=== PATIENT | female | born 1980 | race Caucasian/White ===

== ENCOUNTER 2019-11-13 15:29 | Emergency (ER) | payer OTHER, SELFPAY ==
[2019-11-13 15:36] VITALS: BP 120/72; PULSE 84; RESP 18; TEMP 36.8; O2SAT 100
--- NOTE | 2019-11-13 15:50 | ED.URI ---
HPI - URI/Sore Throat General Chief Complaint: Upper Respiratory Infection Stated Complaint: sinus infection and cough Time Seen by Provider: 11/13/19 15:45 Source: patient and RN notes reviewed Mode of arrival: ambulatory Limitations: no limitations History of Present Illness HPI Narrative: Patient presents today with a 7-day history of sinus pressure and congestion, frontal headache, intermittent dry cough.Reports symptoms had improved 2 days ago, but worsened significantly today. She has been using Christy-Schofield cold and flu and Benadryl. Denies fever or shortness of breath. MD elicited complaint: cough, nasal congestion and sinus pain Related Data Home Medications Medication Instructions Recorded Confirmed No Home Medications 11/13/19 11/13/19 Allergies Allergy/AdvReac Type Severity Reaction Status Date / Time No Known Allergies Allergy Unverified 06/22/18 11:09 Review of Systems Review of Systems: Narrative: CONSTITUTIONAL: Denies body aches, fever, chills, or sweats. EYES: Denies visual changes, redness, or discharge. ENT: Denies rhinorrhea, sore throat, or otalgia.+Nasal congestion, sinus pressure CARDIOVASCULAR: Denies chest pain, palpitations, or edema. RESPIRATORY: Denies dyspnea.+Intermittent dry cough GASTROINTESTINAL: Denies abdominal pain, nausea, vomiting, or diarrhea. GENITOURINARY: Denies dysuria or hematuria. SKIN: Denies rash, itching, or wounds. MUSCULOSKELETAL: Denies back pain, joint pain, or myalgia. NEUROLOGIC: Denies numbness, tingling, or weakness.+Frontal headache PSYCH: Denies depression or anxiety. PMFSH Comments At time of signature, I have reviewed and agree with nursing past medical, surgical, social and family history unless otherwise noted. Please see nursing chart for further information. There is no relevant family history pertinent to the presenting complaint Exam Narrative: Exam Narrative: GENERAL: Mildly ill-appearing, well-nourished, and in no acute distress. HEAD: Normocephalic, atraumatic. EYES: EOMI. No redness or drainage. Conjunctivae normal. ENT: Mucous membranes pink and moist. Nares Congested with rhinorrhea. Bilateral frontal sinus tenderness. TMs normal bilaterally. Throat normal. Uvula midline. NECK: Normal AROM. Supple. No lymphadenopathy. CHEST: No respiratory distress. Clear to auscultation. HEART: Regular rate and rhythm. No murmur appreciated. Normal peripheral pulses. EXTREMITIES: Normal range of motion. No edema. SKIN: Warm, dry, no rash. NEURO: No focal deficits. Alert and oriented x3. Gait steady. PSYCH: Normal affect. No signs of depression or anxiety. Course Vital Signs Vital signs: Vital Signs Temperature 98.2 F 11/13/19 15:36 Pulse Rate 84 11/13/19 15:36 Respiratory Rate 18 11/13/19 15:36 Blood Pressure 120/72 11/13/19 15:36 Pulse Oximetry 100 11/13/19 15:36 Temperature 98.2 F 11/13/19 15:36 Pulse Rate 84 11/13/19 15:36 Respiratory Rate 18 11/13/19 15:36 Blood Pressure 120/72 11/13/19 15:36 Pulse Oximetry 100 11/13/19 15:36 Reviewed MDM - URI/Sore Throat MDM Narrative Medical decision making narrative: Due to patient's history of present illness and symptoms of double worsening, I feel it indicated to treat her with antibiotics at this time for bacterial sinusitis. Differential Diagnosis Differential diagnosis: Likely upper respiratory infection, sinusitis, viral infection and bronchitis Critical Care Time Critical Care Time Critical Care Time: No Discharge Plan Discharge Clinical Impression: Sinusitis Qualifiers: Sinusitis location: frontal Chronicity: acute Recurrence: not specified as recurrent Qualified Code(s): J01.10 - Acute frontal sinusitis, unspecified Patient Disposition: Home, Self-Care Condition: Stable Instructions: Antibiotic Form, Sinusitis (ED) Additional Instructions: Please take the Augmentin as prescribed until gone. You may also consider taking a deconge
== END 2019-11-13 16:00 | disposition home or self-care (01) ==
PROVIDERS: Emergency Provider Nurse Practitioner; PCP Internal Medicine
DX: J01.10 Acute frontal sinusitis, unspecified (principal)
CPT/HCPCS: 99211; G0463

== ENCOUNTER 2021-03-09 12:01 | Emergency (ER) | payer OTHER, SELFPAY ==
[2021-03-09 12:08] VITALS: BP 122/84; PULSE 69; RESP 20; TEMP 36.9; O2SAT 99
--- NOTE | 2021-03-09 12:41 | ED.URI ---
HPI - URI/Sore Throat General Chief Complaint: Upper Respiratory Infection Stated Complaint: Coughing,Congestion and chest pain, Time Seen by Provider: 03/09/21 12:41 Source: patient Mode of arrival: ambulatory Limitations: no limitations History of Present Illness HPI Narrative: Esther Resendez is a 40 yo female with no PMH who came to [facility] with cough congestion and ear pain after traveling back to [place] 5 days ago states she has a cough that feels like acid in her chest, she has tried most yebt-ieq-[id number] medications are available to control her sinus congestion or cough 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 EYES: Denies visual changes, redness, discharge. ENT: Denies rhinorrhea, has congestion, has sore throat, otalgia. CARDIOVASCULAR: Denies chest pain, palpitations, edema. RESPIRATORY: Denies dyspnea, wheezing, has cough GASTROINTESTINAL: Denies abdominal pain, nausea, vomiting, diarrhea. GENITOURINARY: Denies dysuria, hematuria, abnormal discharge SKIN: Denies rash or itching. NEUROLOGIC: Denies numbness, or focal weakness. PSYCHIATRIC: Denies anxiety or depression. [facility] Past Medical History Medical History No acute medical problems Social History Social History (Updated 03/09/21 @ 12:55 by Jolly Lara CNP) Smoking status: Never smoker Alcohol intake: current Comments At time of signature, I agree with nursing past medical, surgical, social and family history. There is no relevant family history pertinent to the presenting complaint. Exam Narrative: Exam Narrative: GENERAL: This is a well-nourished, well-developed patient, in mild distress. HEAD: normocephalic, atraumatic. EYES: Sclera clear/white. Vision is grossly intact. EARS: External ears normal, auditory canals clearon L though states it is painful, right has erythema and without drainage, TMs bulging on right. Hearing grossly intact. NOSE: External nose normal without nasal discharge, nares without redness, no rhinorrhea. THROAT: Mucous membranes moist, posterior pharynx erythema NECK: Neck supple, non-tender CARDIOVASCULAR: Regular rate and rhythm without murmurs, gallops, or rubs. RESPIRATORY: Clear to auscultation. Breath sounds equal bilaterally. No wheezes, rales, or rhonchi. GASTROINTESTINAL: Abdomen soft, non-tender, SKIN: warm, intact with no suspicious lesions or rash, good texture and turgor. NEURO: awake, alert, and oriented to person, place and time. There were no obvious focal neurologic abnormalities. Steady gait EXTREMITIES: Normal range of motion. BACK: Nontender without deformity Course Course Emergency Course: Patient comes to [facility] after trying to self medicate increased over the last 5 days states- the cough started on Thursday home and started feeling worse through the week. She is fully vaccinated Covid test done- negative started on ear drops, Prednisone, cough syrup, albuterol Vital Signs Vital signs: Vital Signs Temperature 98.4 F 03/09/21 12:08 Pulse Rate 69 03/09/21 12:08 Respiratory Rate 20 03/09/21 12:08 Blood Pressure 122/84 03/09/21 12:08 Pulse Oximetry 99 03/09/21 12:08 Temperature 98.4 F 03/09/21 12:08 Pulse Rate 69 03/09/21 12:08 Respiratory Rate 20 03/09/21 12:08 Blood Pressure 122/84 03/09/21 12:08 Pulse Oximetry 99 03/09/21 12:08 MDM - URI/Sore Throat Differential Diagnosis Differential diagnosis: Likely upper respiratory infection, croup, sinusitis, viral infection, pharyngitis and other Lab Data Labs: Lab Results 03/09/21 Range/Units 12:47 POC SARS CoV-2 Ag Negative (Negative) Discharge Plan Discharge Clinical Impression: Upper
== END 2021-03-09 13:08 | disposition home or self-care (01) ==
PROVIDERS: Emergency Provider Nurse Practitioner; PCP Internal Medicine
DX: J06.9 Acute upper respiratory infection, unspecified (principal); Z20.822 Contact with and (suspected) exposure to COVID-19
CPT/HCPCS: 87426; 99213; C9803; G0463

== ENCOUNTER 2021-11-17 10:34 | Emergency (ER) | payer OTHER, SELFPAY ==
[2021-11-17 10:40] VITALS: BP 120/78; PULSE 81; RESP 20; TEMP 37.3; O2SAT 100
--- NOTE | 2021-11-17 10:57 | ED.URI ---
HPI - URI/Sore Throat General Chief Complaint: Upper Respiratory Infection Stated Complaint: Sinus Pain/Cough Time Seen by Provider: 11/17/21 10:57 Source: patient and RN notes reviewed Mode of arrival: ambulatory Limitations: no limitations History of Present Illness HPI Narrative: 41-year-old female presented for complaint of sinus pressure and congestion for 2 weeks. She endorses the last 3 days she developed a moist nonproductive cough. States the cough causes her to become shortness of breath and gag. Denies associated chest pain, wheezing, nausea, vomiting, diarrhea, fever or chills. She is taken [id number] medications with no relief in symptoms. MD elicited complaint: cough Related Data Allergies Allergy/AdvReac Type Severity Reaction Status Date / Time No Known Allergies Allergy Verified 11/17/21 10:58 Review of Systems Review of Systems: CONSTITUTIONAL: Denies malaise, chills, sweats, fever EYES: Denies visual changes, redness, or discharge ENT: Reports rhinorrhea, congestion, sinus pain, otalgia, sore throat CARDIOVASCULAR: Denies chest pain, palpitations, edema RESPIRATORY: Reports cough, post nasal drainage. Denies dyspnea GASTROINTESTINAL: Denies abdominal pain, nausea, vomiting, diarrhea SKIN: Denies rash or itching MUSCULOSKELETAL: Denies myalgia NEUROLOGIC: Denies headache PMFSH Past Medical History Medical History No acute medical problems Social History Social History Smoking status: Never smoker Alcohol intake: current Exam Narrative: GENERAL: Ill-appearing, nontoxic HEAD: Normocephalic EYES: conjunctivae clear ENT: Mucous membranes moist. TM pearly james with dull light reflex bilaterally; no tragal tenderness. Oropharynx erythematous without lesions or exudate, no drooling, no hoarseness, no trismus, uvula midline. NECK: Supple. No lymphadenopathy CHEST: Clear to auscultation, breath sounds equal. No wheezing, rhonchi, rales, or stridor. HEART: Regular rate and rhythm. No murmur heard. SKIN: Warm, dry, no rash. NEURO: Alert and oriented x3. PSYCH: Normal mood and affect Course Course Emergency Course: Patient is aware of diagnosis, understands and agrees to treatment plan. Anticipatory guidance given. Patient agrees to follow-up as directed and is aware of reasons to seek care at the emergency department. Portions of this record may have been created with voice recognition software Level of Care: Express Care Visit Vital Signs Vital signs: Vital Signs Temperature 99.2 F 11/17/21 10:40 Pulse Rate 81 11/17/21 10:40 Respiratory Rate 20 11/17/21 10:40 Blood Pressure 120/78 11/17/21 10:40 Pulse Oximetry 100 11/17/21 10:40 Temperature 99.2 F 11/17/21 10:40 Pulse Rate 81 11/17/21 10:40 Respiratory Rate 20 11/17/21 10:40 Blood Pressure 120/78 11/17/21 10:40 Pulse Oximetry 100 11/17/21 10:40 reviewed MDM - URI/Sore Throat MDM Narrative Medical decision making narrative: Symptoms consistent with URI she is advised to take the antibiotic as directed and continue supportive treatment. No indication for imaging at this time. She will follow up with her PCP. Differential Diagnosis Differential diagnosis: Likely upper respiratory infection, sinusitis and viral infection Discharge Plan Discharge Clinical Impression: Upper respiratory infection Qualifiers: URI type: unspecified URI Qualified Code(s): J06.9 - Acute upper respiratory infection, unspecified Patient Disposition: Home, Self-Care Condition: Stable Instructions: Antibiotic Form, Sinusitis (ED) Additional Instructions: Recommend Flonase spray and Zyrtec (or Claritin/Corrine) over the counter Cough syrup may cause drowsiness; avoid driving or take it at night time. Tylenol 1000mg every 8 hours as needed for pain Symptomatic treatment includes: rest, fluids, and in
== END 2021-11-17 11:15 | disposition home or self-care (01) ==
PROVIDERS: Emergency Provider Nurse Practitioner Family; PCP Internal Medicine
DX: J06.9 Acute upper respiratory infection, unspecified (principal)
CPT/HCPCS: 99213; G0463

== ENCOUNTER 2023-04-13 12:19 | Emergency (ER) | payer OTHER, SELFPAY ==
[2023-04-13 12:33] VITALS: BP 127/87; PULSE 87; RESP 20; TEMP 36.3; O2SAT 100
--- NOTE | 2023-04-13 12:49 | ED.URI ---
HPI - URI/Sore Throat General Chief Complaint: Upper Respiratory Infection Stated Complaint: poss sinus infection Time Seen by Provider: 04/13/23 12:55 Source: patient and RN notes reviewed Mode of arrival: ambulatory Limitations: no limitations History of Present Illness HPI Narrative: 43-year-old female presents with concern for 2 week history of sinus congestion, sinus pain, sinus drainage, reports cough started yesterday. She reports she has been taking [id number] medications without relief MD elicited complaint: nasal congestion and sinus pain Related Data Allergies Allergy/AdvReac Type Severity Reaction Status Date / Time No Known Allergies Allergy Verified 04/13/23 12:40 Review of Systems Review of Systems: CONSTITUTIONAL: Denies malaise, chills, sweats, or fever. EYES: Denies visual changes, redness, or discharge. ENT: Reports rhinorrhea, congestion, sinus pain, otalgia CARDIOVASCULAR: Denies chest pain, palpitations, or edema. RESPIRATORY: Reports cough. Denies dyspnea. GASTROINTESTINAL: Denies abdominal pain, nausea, vomiting, diarrhea SKIN: Denies rash or itching. MUSCULOSKELETAL: Denies myalgia. NEUROLOGIC: Reports headache. All systems reviewed & are unremarkable except as noted in HPI and below PMFSH Past Medical History Medical History No acute medical problems Social History Social History Smoking status: Never smoker Alcohol intake: current Comments At time of signature, agree with nursing past medical, surgical, social and family history. There is no relevant family history pertinent to the presenting complaint Exam Narrative: GENERAL: Well-appearing, well-nourished, and in no acute distress. HEAD: Normocephalic EYES: PERRLA, conjunctivae clear ENT: Nares clear, turbinates edematous and erythematous, sinus tenderness. Mucous membranes moist. TM pearly james with dull light reflex bilaterally; no tragal tenderness. Oropharynx not erythematous without lesions. Tonsils not enlarged and without exudate, no drooling, no hoarseness, no trismus, uvula midline. NECK: Supple. No lymphadenopathy CHEST: Clear to auscultation, breath sounds equal. No wheezing, rhonchi, rales, or stridor. No respiratory distress, speaks in full sentences. HEART: Regular rate and rhythm. No murmur heard. SKIN: Warm, dry, no rash. NEURO: Alert and oriented x3. PSYCH: Normal mood and affect Course Course Emergency Course: Patient is aware of diagnosis, understands and agrees to treatment plan. Anticipatory guidance given. Patient agrees to follow-up as directed and is aware of reasons to seek care at the emergency department. Portions of this record may have been created with voice recognition software Level of Care: Express Care Visit Vital Signs Vital signs: Vital Signs Temperature 97.4 F L 04/13/23 12:33 Pulse Rate 87 04/13/23 12:33 Respiratory Rate 20 04/13/23 12:33 Blood Pressure 127/87 04/13/23 12:33 Pulse Oximetry 100 04/13/23 12:33 Oxygen Delivery Room Air 04/13/23 12:33 Temperature 97.4 F L 04/13/23 12:33 Pulse Rate 87 04/13/23 12:33 Respiratory Rate 20 04/13/23 12:33 Blood Pressure 127/87 04/13/23 12:33 Pulse Oximetry 100 04/13/23 12:33 Oxygen Delivery Room Air 04/13/23 12:33 Reviewed. MDM - URI/Sore Throat MDM Narrative Medical decision making narrative: Differential diagnosis considered: Gusman virus, strep pharyngitis, allergic rhinitis, upper respiratory tract infection, sinusitis, rhinosinusitis, nasopharyngitis. viral pharyngitis, otitis media, otitis externa, pneumonia, bronchitis, viral cough syndrome, viral syndrome, and influenza. Exam findings show no acute concerns or changes; patient is non-toxic appearing and is in no distress. Patient is appropriate for outpatient treatment and follow-up. Lab Data Attestation: I review
== END 2023-04-13 13:15 | disposition home or self-care (01) ==
PROVIDERS: Emergency Provider Nurse Practitioner; PCP Internal Medicine
DX: J01.90 Acute sinusitis, unspecified (principal)
CPT/HCPCS: 99213; G0463

== ENCOUNTER 2024-11-08 13:05 | Emergency (ER) | payer OTHER, SELFPAY ==
[2024-11-08 13:14] VITALS: BP 123/89; PULSE 85; RESP 16; TEMP 36.8; O2SAT 99
--- NOTE | 2024-11-08 13:19 | ED.GENADULT ---
HPI - General Adult General Chief complaint: Extremity Problem,Nontraumatic Stated complaint: pain in right arm Source: patient Mode of arrival: ambulatory Limitations: no limitations History of Present Illness HPI narrative: 44 y/o female presented for c/o acute on chronic right shoulder pain. Says pain worsened today when she returned to work today after being off for 3 months following a work related shoulder injury. Today she says she moved her arm a certain way that caused the shoulder to freeze and lock up, and had sharp pains up and down the arm, and to the shoulder blade. Now reports the pain is 'off the chart.' Continues to have decreased ROM to the shoulder since injury. Says she had been experiencing more of a constant cramping pain to the right upper arm since the injury. Reports she was seen by her company's work comp physician who advised her to return to work today with no restrictions, with a dx of 'mild frozen shoulder,' and says she needs more PT and injections. Pt also says she was seen by a different physician who told her she has multiple labrum tears and the shoulder could pop out, and gave a lifting restriction of 5 lbs. Pt took ibuprofen before work. Denies numbness, tingling or weakness of the arm or hand. Pt is scheduled with pcp this week in 3 days. Related Data Allergies Allergy/AdvReac Type Severity Reaction Status Date / Time No Known Allergies Allergy Verified 11/08/24 13:19 Review of Systems Review of Systems: CONSTITUTIONAL: Denies body aches, fever, chills CARDIOVASCULAR: Denies chest pain, palpitations, or edema. RESPIRATORY: Denies cough or dyspnea. GASTROINTESTINAL: Denies abdominal pain, nausea, vomiting, or diarrhea. SKIN: Denies rash, itching, or wounds. MUSCULOSKELETAL: per HPI NEUROLOGIC: Denies numbness, tingling, or weakness. All systems reviewed & are unremarkable except as noted in HPI and below PMFSH Past Medical History Medical History No acute medical problems Social History Social History Smoking status: Never smoker Alcohol intake: current Comments At time of signature, I have reviewed and agree with nursing past medical, surgical, social and family history unless otherwise noted. Please see nursing chart for further information. There is no relevant family history pertinent to the presenting complaint Exam Narrative: GENERAL: Well-appearing NECK: full ROM CHEST: Speaks in full sentences. No respiratory distress. HEART: Regular rate and rhythm. Normal and equal peripheral pulses. EXTREMITIES: RUE has normal strength and sensation. Limited range of motion at shoulder due to endorses pain with movement <90 degrees anterior and lateral, cannot tolerate full posterior movement. Tender with palpation over the proximal humerus and medial right scapula. No ecchymosis, No open wounds, skin tenting, or obvious deformity; alignment normal, pulse palpable and equal bilaterally, skin warm, dry, pink. Capillary refill less than 3 seconds. SKIN: Warm, dry NEURO: Alert and oriented x3. PSYCH: Normal mood and affect Course Course Emergency Course: Patient is aware of diagnosis, understands and agrees to treatment plan. Anticipatory guidance given. Patient agrees to follow-up as directed and is aware of reasons to seek care at the emergency department. Portions of this record may have been created with voice recognition software Level of Care: Express Care Visit Vital Signs Vital signs: Vital Signs Temperature 98.2 F 11/08/24 13:14 Pulse Rate 85 11/08/24 13:14 Respiratory Rate 16 11/08/24 13:14 Blood Pressure 123/89 11/08/24 13:14 Pulse Oximetry 99 11/08/24 13:14 Oxygen Delivery Room Air 11/08/24 13:14 Temperature 98.2 F 11/08/24 13:14 Pulse Rate 85 11/08/24 13:14 Respiratory Rate 16 11/08/24 13:14 Blood Pressure 123/89 11/08/24 13:14 Pulse Oximetry 99 11/08/24 13:14 Oxygen Delivery Room Air 11/08/24 13:14 Reviewed Medical Decision Making [facility] Narrative Medical decision making narrative: Discussed physical exam findings, pt declines xray at this time stating she has had MRI. She is scheduled with her PCP in 3 days, and would like work note to be off until she can follow up with her established physicians. Rx steroid and cyclobenzaprine. Advised supportive measures and signs/symptoms to go to the ER. Pt is appropriate for outpt treatment and f/u. Differential Diagnosis Differential Diagnosis: Shoulder dislocation, clavicle fracture, humerus fracture, scapular fracture, acromioclavicular joint injury, rotator cuff tear, bicep tendon rupture, tricep tendon rupture, cervical radiculopathy Vital Signs Vital Signs: Vital Signs Temperature 98.2 F 11/08/24 13:14 Pulse Rate 85 11/08/24 13:14 Respiratory Rate 16 11/08/24 13:14 Blood Pressure 123/89 11/08/24 13:14 Pulse Oximetry 99 11/08/24 13:14 Oxygen Delivery Room Air 11/08/24 13:14 Temperature 98.2 F 11/08/24 13:14 Pulse Rate 85 11/08/24 13:14 Respiratory Rate 16 11/08/24 13:14 Blood Pressure 123/89 11/08/24 13:14 Pulse Oximetry 99 11/08/24 13:14 Oxygen Delivery Room Air 11/08/24 13:14 Discharge Plan Discharge Clinical Impression: Pain in right shoulder Patient Disposition: Home, Self-Care Condition: Stable Instructions: Antibiotic Form, Shoulder Pain (ED) Additional Instructions: Rest. Avoid pushing, pulling, lifting, or anything that worsens the symptoms Tylenol 1000mg every 8 hours as needed. take the steroid as directed, limit NSAIDs (Advil, Aleve, ibuprofen etc ) while taking steroid. Cyclobenzaprine (Flexeril) is a muscle relaxer. Take it as directed. It can cause drowsiness so do not drive or operate machinery until you know how it makes you feel. Alternate ice/heat to the site. Lidocaine or salon pas pain patch or use pain cream like icy/hot or biofreeze. Follow up with your primary care provider as scheduled this week. Follow up with your specialist. Go to the ER for worsening symptoms or concerns Patient Language: [place] Prescriptions: New prednisone 50 mg tablet 50 mg PO DAILY Qty: 5 0RF cyclobenzaprine 5 mg tablet 5 mg PO TID PRN (Reason: muscle spasm) Qty: 10 0RF Rx Instructions: Take 1-2 tablets as needed 3 times a day Follow-up/Referrals: Erick Petersen MD [Physician] - PHYSICIAN NOT ON STAFF,NONSTAFF [Primary Care Provider] - Stand Alone Forms: Work/School Release IP Time of Disposition: 13:51
--- OUTSIDE RECORDS SUMMARY | 2024-11-08 14:28 | XMS_ITS | Clinical Summary ---
Author Organization [facility] Address [address] [place] [address] Care Team Providers Care Furnace Feeder Name Role Phone Sagar Redmond MD Primary Care Provider + Allergies No known active allergies Medications cephalexin (KEFLEX) 500 mg capsule Take 1 capsule (500 mg total) by mouth 4 (four) times a day for 7 days 28 capsule 10/17/2024 10/25/19 25 Active Problems Problem Noted Date Diagnosed Date Skin abnormality 01/26/2024 History of surgical procedure 01/07/2014 Overview (11/26/2016): Status following surgery for weight loss Encounters Date Type Department Care Team Description 10/17/2024 3:00 PM CLIENT CONSULTANT Office Visit [facility] [address] [facility] [address] [place] [id number] Pk Lopez MD Well woman exam (Primary Dx); Encounter for screening mammogram for malignant neoplasm of breast; Sebaceous cyst 08/19/2024 8:03 AM CLIENT CONSULTANT - 08/19/2024 11:59 PM CLIENT CONSULTANT Hospital Encounter [facility] [address] [place] [address] Chronic right shoulder pain Discharge Disposition: Discharge to home or self care from Last 3 Months Surgical History Surgery Date Site/Laterality Comments OTHER SURGICAL HISTORY 08/24/2001 - 08/23/2002 : 10 hr labor OTHER SURGICAL HISTORY 08/24/2006 - 08/23/2007 : 0 hr labor ABLATION 08/24/2008 - 08/23/2009 Ablation OTHER SURGICAL HISTORY 08/24/2011 - 08/23/2012 Gastric Sleeve surgery for wt. loss OTHER SURGICAL HISTORY 08/24/2013 - 08/23/2014 Pelvic pain and menorrhagia, dyspareunia.: JAIME, bilat. salpingectomy HYSTERECTOMY 09/07/2013 LAVH TUBAL LIGATION 09/07/2013 BTL MENISCUS SURGERY 05/24/2020 - 06/23/2020 Right Medical History Medical History Date Comments Hx Other Medical 2001 ; Outc ome: 36 week 4 lb(s) 7 oz Male Hx Other Medical 2006 ; Outc ome: 39 week 8 lb(s) 7 oz Female Hx Other Medical Pelvic pain and menorrhagia, dyspareunia. Family History Medical History Relation Name Comments Cancer Mother Other Other 1 Family history of high cholesterol; Hypertension Other 2 Family history of Hypertension; Relation Name Status Comments Father Mother Other 1 Other 2 Social History Tobacco Use Types Packs/Day Years Used Date Smoking Tobacco: Never Smokeless Tobacco: Never Tobacco Cessation:Counseling Given: Not Answered Alcohol Use Standard Drinks/Week Comments No 0 (1 standard drink = 0.6 oz pur e alcohol) PHQ-2 Answer Date Recorded PHQ-2 Total Score (If total score is 3 or more points, staff should administer the PHQ-9) 0 08/04/2023 Comments No Sex and Gender Information Value Date Recorded Sex Assigned at Not on file Legal Sex Female 5:33 AM CLIENT CONSULTANT Gender Identity Not on file Sexual Orientation Not on file Obstetrics History Para Term AB IAB SAB Ectopic Multiple Livin g Live Births 4 3 2 1 1 2 2 Date Outcome GA Total Labor Labor/2nd/3rd Weight Sex Type Anes PTL Kayleigh A1 A5 Name Clin AB Term 2001 36w 0d 1.814 kg (4 lb) M CS-LT ranv Epidur al,Spi nal N Livin g Matthew Complications:Pre eclampsia, Nuchal cord affecting delivery 2006 Term 38w 0d 3.629 kg (8 lb) F CS-LT ranv Spinal N Livin g Kitty Complications:None Last Filed Vital Signs Vital Sign Reading Time Taken Comments Blood Pressure 124/82 10/17/2024 3:04 PM CLIENT CONSULTANT Pulse 67 01/06/2024 9:56 AM CDT Temperature 36.4 C (97.5 F) 01/06/2024 9:56 AM CDT Respiratory Rate 16 06/22/2018 10:10 PM CDT Oxygen Saturation 100% 01/06/2024 9:56 AM CDT Inhaled Oxygen Concentration - - Weight 74.4 kg (164 lb) 10/17/2024 3:04 PM CLIENT CONSULTANT Height 162.6 cm (5' 4 ) 10/17/2024 3:04 PM CLIENT CONSULTANT Body Mass Index 28.15 10/17/2024 3:04 PM CLIENT CONSULTANT Plan of Treatment Health Maintenance Due Date Last Done Comments Hepatitis C Screening 1982 Varicella Vaccines (1 of 2 - 13+ 2-dose series) 1995 Hepatitis B Screening 2000 DTaP/Tdap/Td Vaccine (1 - Tdap) 01/02/2012 01/01/2012 Breast Cancer Screening-Mammogram 07/14/2023 07/14/2022 Depression Screening 08/04/2024 08/04/2023, 06/24/2022, 07/02/2020, Additional history exists Regular Well Visit/Exam 18-64 10/17/2025 10/17/2024, 08/04/2023, 06/24/2022, Additional history exists Cervical Cancer Screening Discontinued 2018, 01/17/2012, 12/24/2010 Influenza Vaccine Completed 07/29/2024, , 05/28/2020, Additional history exists HPV Vaccines Aged Out No longer eligi ble based on patient's age to complete this topic Pneumococcal vaccine <65 Aged Out No longer eligible based on patient's age to complete this topic Procedures Procedure Name Priority Date/Time Associated Diagnosis Comments MRI SHOULDER RIGHT WO CONTRAST Schedule Routine, Read Routine (OP Routine) 08/19/2024 9:00 AM CLIENT CONSULTANT Chronic right shoulder pain DIAGNOSTIC MAMMOGRAM BILATERAL W MIHIR Schedule Routine, Read Routine (OP Routine) 07/14/2022 10:20 AM CLIENT CONSULTANT Mass of upper inner quadrant of right breast PAP IG, HPV-HR Routine 06/20/2019 3:26 PM CDT Well woman exam from Last 3 Months or Most Recently Relevant to Health Maintenance Results * MRI Shoulder Right WO Contrast (08/19/2024 9:00 AM CLIENT CONSULTANT) Anatomical Region Laterality Modality Upper Extremities Right Magnetic Reson ance Narrative 08/19/2024 10:59 AM CLIENT CONSULTANT EXAM DESCRIPTION: MRI SHOULDER RIGHT WO CONTRAST REASON FOR STUDY: chronic right shoulder pain Chronic pain in R shoulder radiating in arm to elbow- unspecified cause, could be over time from lifting heavy at her job. Pt also reported a limited ROM and some swelling in shoulder. TECHNIQUE: Multiplanar, multisequence MRI of the right shoulder was performed without contrast. COMPARISON: None available FINDINGS: There is a type 1 acromion. The coracoacromial ligament is thin. There is mild acromioclavicular joint osteoarthritis. There is mild subacromial subdeltoid bursitis. The rotator cuff muscle bulk is normal. The subscapularis is intact. The biceps tendon is located within the bicipital groove. The supraspinatus and infraspinatus cuff tendons are intact without evidence of a discrete tear. On this non arthrographic evaluation, there is a likely focal tear of the posterosuperior glenoid labrum. The labrum below the equator is normal. The glenohumeral cartilage is normal. A physiologic amount of fluid is present within the joint space. There are no loose bodies. The inferior glenohumeral joint capsule is thickened and edematous with pericapsular edema. IMPRESSION: Thickened and edematous right inferior glenohumeral joint capsule with pericapsular edema. This can be associated with adhesive capsulitis. Intact right rotator cuff. Likely focal tear of the posterosuperior right glenoid labrum. This can be further evaluated with MR arthrogram if clinically indicated. Mild right acromioclavicular joint osteoarthritis with mild subacromial subdeltoid bursitis. THIS IS AN ELECTRONICALLY VERIFIED FINAL REPORT 08/19/2024 10:59 AM - Electronically signed by William ALEJANDRE: HILL Report ID: [id number] Reading Location: [place] [address] Sagar Redmond MD [facility] MRI PROCEDURES Edite d Result - Final * Diagnostic Mammogram Bilateral W Mihir (07/14/2022 10:20 AM CLIENT CONSULTANT) Anatomical Region Laterality Modality Breast Bilateral Mammography 07/14/2022 10:5 5 AM CLIENT CONSULTANT Impressions 07/14/2022 10:55 AM CLIENT CONSULTANT 1. The palpable lump of concern in the right anterior chest wall near the right breast is not seen on mammogram, and on sonogram it corresponds to an area of skin thickening and increased subcutaneous fat echogenicity, measuring 11 mm. This almost certainly represents a resolving benign skin lesion with no suspicious mass or fluid collection. Continued physical examination is recommended. Any further management should be based on clinical assessment. 2. There is no suspicious finding in either breast on mammogram. Monthly breast self-exam is recommended, and annual bilateral screening mammography in 12 months. BI-RADS: 2 - Benign. I discussed the findings and recommendations with the patient at time of the examination. Electronically signed by: REMINGTON Kent 07/14/2022 10:55 AM CLIENT CONSULTANT EXAMINATION: US BREAST RIGHT LIMITED, DIAGNOSTIC MAMMOGRAM BILATERAL W MIHIR ORDERING HEALTHCARE PROVIDER: JESSE SALCIDO HISTORY: 42-year-old woman comes in today for evaluation of a palpable lump right anterior chest wall, near the right breast. The patient reports she felt this lump in May, and was associated with skin erythema. Since then, the erythema has resolved, and the lump has decreased in size. No discharge. COMPARISON: None available. This is patient's baseline mammogram. TECHNIQUE: CC and MLO views of both breasts were obtained with digital technique using digital breast tomosynthesis with C view. Computer aided detection was utilized. Targeted sonographic examination of the right chest wall was performed real-time grayscale images and color Doppler. FINDINGS: MAMMOGRAPHIC FINDINGS: There is scattered fibroglandular tissue There is no suspicious finding in either breast on mammogram. SONOGRAPHIC FINDINGS: Targeted sonographic examination was performed in the area of palpable concern in the right anterior chest wall near the right breast. At this level there is a small focal area of skin thickening, and increased echogenicity of the subcutaneous fat without mass or fluid collection. This area measures approximately 11 mm. us Jesse Salcido MD IM MAMMO PROCEDURE S Final Result * Pap IG, HPV-hr (06/20/2019 3:26 PM CDT) Clinical indication Comment [facility] - 01 Comment:NEGATIVE FOR INTRAEP ITHELIAL LESION OR MALIGNANCY. Specimen adequacy: Comment [facility] - 01 Comment:Satisfactory for nick luation. No endocervical component is identified. Clinician provided ICD10 Comment [facility] - 01 Comment:Z01.419 Performed by Comment [facility] - 01 Comment:Phylicia camargo, Rod Buster (ASCP) . . [facility] - 01 Note: Comment [facility] - 01 Comment: The Pap smear is a screening test designed to aid in the detection of premalignant and malignant conditions of the uterine cervix. It is not a diagnostic procedure and should not be used as the sole means of detecting cervical cancer. Both false-positive and false-negative reports do occur. Test methodology Comment [facility] - Comment: This liquid based ThinPrep(R) pap test was screened with the use of an image guided system. HPV, high-risk Negative Negative [facility] 02 Comment: This high-risk HPV test detects thirteen high-risk types (16/18/31/33/35/39/45/51/52/56/58/59/68) without differentiation. Vaginal 06/20/2019 3:26 PM CDT 06/22/2019 Narrative [facility] - 06/28/2019 9:06 PM CLIENT CONSULTANT Performed at: - [facility] [id number] Technical Sales Representatives: Amy Berry MD, Phone: [phone] Performed at: 02 - [facility] [id number] Technical Sales Representatives: Amy Berry MD, Phone: [phone] Specimen Comment: No. of containers..01 ThinPrep Vial Pk Lopez MD LAB PATHOLOGY ORDERABLES F inal Result [facility] 01 [facility] 02 from Last 3 Months or Most Recently Relevant to Health Maintenance Insurance [facility] Address: [place] [address] [facility]/PPO Address: [place] [id number] [employer] [facility]/PPO Address: [place] [phone] Care Teams Furnace Feeder Relationship Specialty Start Date End Date Nyla, Sagar M., MD PCP - General 11/04/16
--- OUTSIDE RECORDS SUMMARY | 2024-11-08 14:28 | XMS_ITS | Referral Summary ---
Author Organization [facility] Address [address] [place] [address] Care Team Providers Care Environmental Conservation Officer Name Role Phone Sagar Redmond MD Primary Care Provider + Encounters Date Type Department Care Team Description 10/17/2024 3:00 PM FUEL EFFICIENT AIRCRAFT DESIGNER Office Visit [facility] 4 [facility] [address] [place] [address] Pk Lopez MD Well woman exam (Primary Dx); Encounter for screening mammogram for malignant neoplasm of breast; Sebaceous cyst 08/19/2024 8:03 AM FUEL EFFICIENT AIRCRAFT DESIGNER - 08/19/2024 11:59 PM FUEL EFFICIENT AIRCRAFT DESIGNER Hospital Encounter [facility] 1 [place] [address] Chronic right shoulder pain Discharge Disposition: Discharge to home or self care from Last 3 Months Allergies No known active allergies Medications cephalexin (KEFLEX) 500 mg capsule Take 1 capsule (500 mg total) by mouth 4 (four) times a day for 7 days 28 capsule 10/17/2024 10/25/19 25 Active Problems Problem Noted Date Diagnosed Date Skin abnormality 01/26/2024 History of surgical procedure 01/07/2014 Overview (11/26/2016): Status following surgery for weight loss Social History Tobacco Use Types Packs/Day Years [...] on file Legal Sex Female 5:33 AM FUEL EFFICIENT AIRCRAFT DESIGNER Gender Identity Not on file Sexual Orientation Not on file Last Filed Vital Signs Vital Sign Reading Time Taken Comments Blood Pressure 124/82 10/17/2024 3:04 PM FUEL EFFICIENT AIRCRAFT DESIGNER Pulse 67 01/06/2024 9:56 AM CDT Temperature 36.4 C (97.5 F) 01/06/2024 9:56 AM CDT Respiratory Rate 16 06/22/2018 10:10 PM CDT Oxygen Saturation 100% 01/06/2024 9:56 AM CDT Inhaled Oxygen Concentration - - Weight 74.4 kg (164 lb) 10/17/2024 3:04 PM FUEL EFFICIENT AIRCRAFT DESIGNER Height 162.6 cm (5' 4 ) 10/17/2024 3:04 PM FUEL EFFICIENT AIRCRAFT DESIGNER Body Mass Index 28.15 10/17/2024 3:04 PM FUEL EFFICIENT AIRCRAFT DESIGNER Plan of Treatment Not on file Procedures Procedure Name Priority Date/Time Associated Diagnosis Comments MRI SHOULDER RIGHT WO CONTRAST Schedule Routine, Read Routine (OP Routine) 08/19/2024 9:00 AM FUEL EFFICIENT AIRCRAFT DESIGNER Chronic right shoulder pain DIAGNOSTIC MAMMOGRAM BILATERAL W CANDELARIA Schedule Routine, Read Routine (OP Routine) 07/14/2022 10:20 AM FUEL EFFICIENT AIRCRAFT DESIGNER Mass of upper inner quadrant of right breast PAP IG, HPV-HR Routine 06/20/2019 3:26 PM CDT Well woman exam from Last 3 Months or Most Recently Relevant to Health Maintenance Results * MRI Shoulder Right WO Contrast (08/19/2024 9:00 AM FUEL EFFICIENT AIRCRAFT DESIGNER) Anatomical Region Laterality Modality Upper Extremities Right Magnetic Reson ance Narrative 08/19/2024 10:59 AM FUEL EFFICIENT AIRCRAFT DESIGNER EXAM DESCRIPTION: MRI SHOULDER RIGHT WO CONTRAST [...] 10:59 AM - Electronically signed by William Rodriguez M.D. MF: [facility] Report ID: [id number] Reading Location: [place] [address] us Sagar Redmond MD [facility] [place] PROCEDURES Edite d Result - Final * Diagnostic Mammogram Bilateral W Candelaria (07/14/2022 10:20 AM FUEL EFFICIENT AIRCRAFT DESIGNER) Anatomical Region Laterality Modality Breast Bilateral Mammography 07/14/2022 10:5 5 AM FUEL EFFICIENT AIRCRAFT DESIGNER Impressions 07/14/2022 10:55 AM FUEL EFFICIENT AIRCRAFT DESIGNER 1. The palpable lump of concern in [...] of the examination. Electronically signed by: REMINGTON RUSS Narrative 07/14/2022 10:55 AM FUEL EFFICIENT AIRCRAFT DESIGNER EXAMINATION: US BREAST RIGHT LIMITED, DIAGNOSTIC MAMMOGRAM BILATERAL W CANDELARIA ORDERING HEALTHCARE PROVIDER: DREAD SALCIDO HISTORY: 42-year-old woman comes in today [...] collection. This area measures approximately 11 mm. Dread Salcido MD [facility] MAMMO PROCEDURE S Final Result * Pap IG, HPV-hr (06/20/2019 3:26 PM CDT) Clinical indication Comment [facility] - 01 Comment:NEGATIVE FOR INTRAEP ITHELIAL LESION OR MALIGNANCY. Specimen adequacy: Comment [facility] - 01 Comment:Satisfactory for nick luation. No endocervical component is identified. Clinician provided ICD10 Comment [facility] - 01 Comment:Z01.419 Performed by Comment [facility] - 01 Comment:Phylicia camargo, Critical Care Educator (ASCP) . . [facility] - 01 Note: [...] do occur. Test methodology Comment [facility] - 01 Comment: This liquid based ThinPrep(R) pap test was screened with the use of an image guided system. HPV, high-risk Negative Negative [facility] 02 Comment: This high-risk HPV test detects thirteen high-risk types (16/18/31/33/35/39/45/51/52/56/58/59/68) without differentiation. Vaginal 06/20/2019 3:26 PM CDT 06/22/2019 Narrative [facility] - 06/28/2019 9:06 PM FUEL EFFICIENT AIRCRAFT DESIGNER Performed at: - [facility] [id number] Wool Hat Hydraulicker: Amy Berry MD, Phone: [phone] Performed at: 02 - [facility] [id number] Wool Hat Hydraulicker: Amy Berry MD, Phone: [phone] Specimen Comment: No. of containers..01 ThinPrep Vial Pk Lopez MD LAB PATHOLOGY ORDERABLES F [facility]al [facility] - 01 [facility] 02 from Last 3 Months or Most Recently Relevant to Health Maintenance Insurance [facility] CHOICE PLUS CHOICE PLUS Care Teams Environmental Conservation Officer Relationship Specialty Start Date End Date Sagar Redmond MD PCP - General 11/04/16
--- OUTSIDE RECORDS SUMMARY | 2024-11-08 14:28 | XMS_ITS | Clinical Summary ---
Author Organization [facility] [address] [facility] [address] [address] Phone Care Team Providers Care Highway Inspector Name Role Phone Sagar Redmond MD Primary Care Provider [phone] Allergies No known active allergies Medications Multiple Vitamin (MULTIVITAMIN PO) Take by mouth. Activ e Biotin w/ Vitamins C & E (HAIR/SKIN/NAIL S PO) Take by mouth. Activ e Ferrous Sulfate (Iron) 325 (65 Fe) MG Tablet Take by mouth. A ctive Wegovy 0.25 MG/0.5ML Solution Auto-injectorIn dications:Obesi ty 0.25 mg by Subcutaneous route once a week. Indications: OBESITY 2 mL 1 Active Active Problems No known active problems Resolved Problems Problem Noted Date Diagnosed Date Resolved Date Tear of lateral meniscus of right knee, current 06/29/2020 10/24/2022 Encounters Date Type Department Care Team Description 10/26/2024 Telephone [facility] Medical [facility] - Family [facility] [address] [place] [address] Parvin Peters PAC 09/26/[address] [facility] - [facility] Care - [place] [address] [place] [address] Sagar Redmond MD Prior Authorization (Wegovy) 09/23/2024 1:00 PM FIELD SUPPORT TECHNICIAN Physical Therapy [facility] [address] [place] [address] Genevieve Hong MD Bogowith, Kelly A, PT Labral tear of shoulder, right, subsequent encounter (Primary Dx); Adhesive capsulitis of right shoulder; Decreased ROM of right shoulder Discharge Disposition: Discharged to home or Selfcare 09/20/2024 4:00 PM FIELD SUPPORT TECHNICIAN Physical Therapy [facility] at [facility] [address] [place] [address] Genevieve Hong MD Stewart, James R, ELECTRIC GOLF CART REPAIRER Labral tear of shoulder, right, subsequent encounter (Primary Dx) Discharge Disposition: Discharged to home or Selfcare 09/20/2024 Travel 09/15/2024 10:00 AM FIELD SUPPORT TECHNICIAN Physical Therapy [facility] at [facility] [address] [place] [address] Genevieve Hong MD Bogowith, Kelly A, PT Labral tear of shoulder, right, subsequent encounter (Primary Dx); Adhesive capsulitis of right shoulder; Decreased ROM of right shoulder Discharge Disposition: Discharged to home or Selfcare 09/14/2024 Telephone [facility] [address] [place] [phone] Sagar Redmond MD Prior Authorization (OZEMPIC)) 09/13/2024 8:30 AM FIELD SUPPORT TECHNICIAN Physical Therapy [facility] at [facility] [address] [place] [address] Genevieve Hong MD Bogowith, Kelly A, PT Labral tear of shoulder, right, subsequent encounter (Primary Dx); Adhesive capsulitis of right shoulder; Decreased ROM of right shoulder Discharge Disposition: Discharged to home or Selfcare 09/13/2024 Plan of Care Documentation [facility] [address] [place] [address] 09/13/2024 Travel 09/12/2024 Results Follow-Up [facility] [place] [address] Sagar Redmond MD 09/08/2024 11:40 AM FIELD SUPPORT TECHNICIAN Lab [facility] [address] [address] [facility] Class 1 obesity due to excess calories without serious comorbidity with body mass index (BMI) of 31.0 to 31.9 in adult; Encounter for hepatitis C screening test for low risk patient Discharge Disposition: Discharged to home or Selfcare 09/08/2024 10:45 AM FIELD SUPPORT TECHNICIAN Office Visit [facility] [address] Sagar Redmond MD Class 1 obesity due to excess calories without serious comorbidity with body mass index (BMI) of 31.0 to 31.9 in adult (Primary Dx); Encounter for hepatitis C screening test for low risk patient Discharge Disposition: Discharged to home or Selfcare 09/08/2024 Travel 08/30/2024 Results Follow-Up [facility] [place] [address] Genevieve Hong MD Chronic right shoulder pain (Primary Dx) 08/26/2024 10:15 AM FIELD SUPPORT TECHNICIAN Office Visit [facility] [address] Genevieve Hong MD Labral tear of shoulder, right, subsequent encounter (Primary Dx); Adhesive capsulitis of right shoulder Discharge Disposition: Discharged to home or Selfcare 08/26/2024 Travel from Last 3 Months Immunizations Immunization Administration Dates Next Due Influenza Vaccine 05/03/2018 Influenza Vaccine greater than 3 yrs 05/30/2022, 05/28/2020,08/24/2010 Influenza,Split Virus,Trivalent,Injectable,PF 07/29/2024 TD VACCINE 01/01/2012 Family History Medical History Relation Name Comments No Known Problems Brother No Known Problems Father Cancer Mother LUNG High Cholesterol Sister Relation Name Status Comments Brother Alive Father Mother Sister Alive Social History Tobacco Use Types Packs/Day Years Used Date Smoking Tobacco: Never Smokeless Tobacco: Never Tobacco Cessation:Counseling Given: No Alcohol Use Standard Drinks/Week Comments No 0 (1 standard drink = 0.6 oz pur e alcohol) [facility] Utilities Answer Date Recorded In the past 12 months has th e Videum, gas, oil, or water cuaQea threatened to shut off services in your home? No 09/08/2024 AUDIT-C Answer Date Recorded Q1: How often do you have a drink containing alcohol? Never 09/08/2024 Q2: How many drinks containi ng alcohol do you have on a typical day when you are drinking? Patient does not drink Q3: How often do you have si x or more drinks on one occasion? Never 09/08/2024 Overall Financial Resource Strain (CARDIA) Answe r Date Recorded How hard is it for you to pa y for the very basics like food, housing, medical care, and heating? Not hard at all 09/08/2024 PHQ-2 Answer Date Recorded Total Score - Questions 1-9 0 08/24 [facility] - Occupational Stress Questionnaire Answer Date Recorded Do you feel stress - tense, restless, nervous, or anxious, or unable to sleep at night because your mind is troubled all the time - these days? Not at all 09/08/2024 Exercise Vital Sign Answer Date Recorde d On average, how many days pe r week do you engage in moderate to strenuous exercise (like a brisk walk)? 0 days 09/08/2024 On average, how many minutes do you engage in exercise at this level? 0 min 09/08/2024 Hunger Vital Sign Answer Date Recorded Within the past 12 months, y ou worried that your food would run out before you got the money to buy more. Never true 09/08/19 25 Within the past 12 months, t he food you bought just didn't last and you didn't have money to get more. Never true 09/08/2024 PRAPARE - Transportation Answer Date Re corded In the past 12 months, has l ack of transportation kept you from medical appointments or from getting medications? No 08/24 In the past 12 months, has l ack of transportation kept you from meetings, work, or from getting things needed for daily living? No 09/08/2024 Housing Stability Vital Sign Answer Hector e Recorded In the last 12 months, was t here a time when you were not able to pay the mortgage or rent on time? No 09/08/2024 Number of Times Moved in the Last Year Not on fi le 09/08/2024 At any time in the past 12 m [facility], were you homeless or living in a long-term (including now)? No 09/08/2024 Comments No Sex and Gender Information Value Date Recorded Sex Assigned at Not on file Legal Sex Female 7:14 PM CDT Gender Identity Not on file Sexual Orientation Not on file Last Filed Vital Signs Vital Sign Reading Time Taken Comments Blood Pressure 114/62 09/08/2024 10:51 AM FIELD SUPPORT TECHNICIAN Pulse 91 09/08/2024 10:51 AM FIELD SUPPORT TECHNICIAN Temperature 36.8 C (98.2 F) 09/08/2024 10:51 AM FIELD SUPPORT TECHNICIAN Respiratory Rate 20 09/08/2024 10:51 AM FIELD SUPPORT TECHNICIAN Oxygen Saturation 99% 09/08/2024 10:51 AM FIELD SUPPORT TECHNICIAN Inhaled Oxygen Concentration - - Weight 70.9 kg (156 lb 4.8 oz) 09/08/2024 10:51 AM FIELD SUPPORT TECHNICIAN Height 162.6 cm (5' 4 ) 09/08/2024 10:51 AM FIELD SUPPORT TECHNICIAN Body Mass Index 26.83 09/08/2024 10:51 AM FIELD SUPPORT TECHNICIAN Plan of Treatment Upcoming Encounters Date Type Department Care Team (Late st Contact Info) Description 11/11/2024 2:00 PM CDT Office Visit [facility] [address] [place] [address] Parvin Peters PAC [address] [place] [address] Health Maintenance Due Date Last Done Comments TdaP Immunization 1982 Hepatitis B Immunization (1 of 3 - 19+ 3-dose series) 2001 Mammogram 07/14/2023 07/14/2022 SARS-COV-2 Immunization ( season) 2024 09/11/2021, 12/06/2020, 11/15/2020 Respiratory Syncytial Virus (RSV) Immunization (Adult) (1 - 1-dose 75+ series) 2057 Discussion re Starting/Frequency of Mammograms Completed 07/14/2022 Influenza Immunization Completed 4, 05/30/2022, 05/28/2020, Additional history exists Hepatitis C Virus (HCV) Screening Completed 09/08/2024 Meningococcal Immunization (ACWY) Aged Out No longer eligible based on patient's age to complete this topic Pneumococcal Immunization Combined Aged Out No longer eligible based on patient's age to complete this topic Rotavirus Immunization Aged Out No lo nger eligible based on patient's age to complete this topic Procedures Procedure Name Priority Date/Time Associated Diagnosis Comments HEPATITIS C ANTIBODY Routine 09/08/2024 11:20 AM FIELD SUPPORT TECHNICIAN Encounter for hepatitis C screening test for low risk patient CMP (COMPREHENSIVE METABOLIC PANEL) Today 09/08/2024 11:20 AM FIELD SUPPORT TECHNICIAN Class 1 obesity due to excess calories without serious comorbidity with body mass index (BMI) of 31.0 to 31.9 in adult MRI RIGHT SHOULDER WO CONTRAST Routine 08/19/2024 12:00 AM FIELD SUPPORT TECHNICIAN Chronic right shoulder pain from Last 3 Months Results * HEPATITIS C ANTIBODY (09/08/2024 11:20 AM FIELD SUPPORT TECHNICIAN) hepatitis C antibody 0.09 <1 S/CO 09/09/2024 12:46 AM FIELD SUPPORT TECHNICIAN [facility] Comment: Signal/Cutoff ratio < 0.79 is Nondetected Signal/Cutoff ratio 0.80-0.99 is Grayzone Signal/Cutoff ratio > 0.99 is Detected Supplemental assays are recommended if signal/cutoff ratio is >/=1.00. Signal/cutoff ratio result >/= 5.00 is 97% predictive of positivity for recombinant immunoblot assay (RIBA) and will be reported to the [place] Department of Public Health as required. Blood Venipuncture / Unknown 09/08/2024 11:20 AM FIELD SUPPORT TECHNICIAN 09/08/2024 11:20 AM FIELD SUPPORT TECHNICIAN us Sagar Redmond MD CHEMISTRY ORDERABLES Tabitha sparks Result [facility] [address] [place] [address], * (ABNORMAL) CMP (COMPREHENSIVE METABOLIC PANEL) (09/08/2024 11:20 AM FIELD SUPPORT TECHNICIAN) SODIUM 142 136 - 145 mmol/L 09/08/2024 1:26 PM [facility] POTASSIUM 4.1 3.5 - 5.1 mmol/L 09/08/2024 1:26 PM [facility] CHLORIDE 109(H) 98 - 107 mmol/L 09/08/2024 1:26 PM [facility] CO2, VENOUS 27 22 - 30 mmol/L 09/08/2024 1:26 PM [facility] ANION GAP 10.1 <18.0 mmol/L 09/08/2024 1:26 PM [facility] GLUCOSE 93 70 - 99 mg/dL 09/08/2024 1:26 PM [facility] BUN 13 5 - 18 mg/dL 09/08/2024 1:26 PM [facility] CREATININE, BLOOD 0.78 0.60 - 1.00 mg/dL 09/08/2024 1:26 PM [facility] BUN/CREATININE RATIO 17 12 - 20 ratio 09/08/2024 1:26 PM [facility] TOTAL PROTEIN 6.3 6.0 - 8.0 g/dL 09/08/2024 1:26 PM [facility] ALBUMIN 3.5 3.5 - 5.0 g/dL 09/08/2024 1:26 PM [facility] A/G RATIO 1.3 1.0 - 2.2 09/08/2024 1:26 PM [facility] CALCIUM 8.6(L) 8.7 - 10.5 mg/dL 09/08/2024 1:26 PM FIELD SUPPORT TECHNICIAN [facility] T BILI 0.3 0.2 - 1.2 mg/dL 09/08/2024 1:26 PM FIELD SUPPORT TECHNICIAN [facility] SGOT (AST) 31 6 - 42 U/L 09/08/2024 1:26 PM FIELD SUPPORT TECHNICIAN [facility] SGPT (ALT) 39 6 - 55 U/L 09/08/2024 1:26 PM FIELD SUPPORT TECHNICIAN [facility] ALKALINE PHOSPHATASE 38(L) 40 - 150 U/L 09/08/2024 1:26 PM FIELD SUPPORT TECHNICIAN [facility] IS THE PATIENT REQUIRED TO BE FASTING? No 09/08/2024 1:26 PM FIELD SUPPORT TECHNICIAN [facility] GFR, ESTIMATED >60 >=60 09/08/2024 1:26 PM FIELD SUPPORT TECHNICIAN [facility] Comment: Creatinine Clearance is the preferred criteria for selecting drug dose adjustments in renally impaired patients. The GFR is provided as additional pertinent clinical information. GFR is reported in mL/min/1.73 sq m. Calculation based on the Chronic Kidney Disease Epidemiology Collaboration (CKD- EPI) equation refit without adjustment for race. GFR, EST. >60 >=60 025 1:26 PM FIELD SUPPORT TECHNICIAN [facility] GFR, EST. NONAFRICAN >60 >=60 09/08/2024 1:26 PM FIELD SUPPORT TECHNICIAN [facility] Blood Venipuncture / Unknown 09/08/2024 11:20 AM FIELD SUPPORT TECHNICIAN 09/08/2024 11:20 AM FIELD SUPPORT TECHNICIAN us Sagar Redmond MD CHEMISTRY ORDERABLES Tabitha l Result [facility] [address] [place] [address] * MRI RIGHT SHOULDER WO CONTRAST (08/19/2024 12:00 AM FIELD SUPPORT TECHNICIAN) Anatomical Region Laterality Modality UPPER EXTREMITY, shoulder Right Other 08/19/2024 us Genevieve Hong MD IMG MR ORDERABLES Final Re sult from Last 3 Months Insurance , [address] [address] Care Teams [address] Inspector Relationship Specialty Start Date End Date Sagar Redmond MD [address] [place] [address] PCP - General Internal Medicine 10/22/18
--- OUTSIDE RECORDS SUMMARY | 2024-11-08 14:28 | XMS_ITS | Encounter Summary ---
Author Organization [facility] Address [address] [place] [address] Phone Care Team Providers Care Size Mixer Name Role Phone William Toussaint MD Unavailable [phone] Sagar Redmond MD Primary Care Provider [phone] Reason for Referral * Radiology Services (Routine) - Closed Specialty Diagnoses / Procedures Referred By Ava tillman Referred To Contact Radiology Diagnoses Pre-op exam Right knee pain, unspecified chronicity Osteoarthritis of right knee, unspecified osteoarthritis type Procedures EKG 12 LEAD Mendel Mo MD Phone: tel: fax: Referral ID Status Reason Start Date Expiration Date Visits Re quested Visits Authorized [id number] Closed 06/26/2020 1 1 [employer] * Radiology Services (Routine) - Closed Specialty Diagnoses / Procedures Referred By Ava tillman Referred To Contact Radiology Diagnoses Pre-op exam Right knee pain, unspecified chronicity Osteoarthritis of right knee, unspecified osteoarthritis type Procedures XR CHEST 2 VIEWS Mendel Mo MD Phone: tel: fax: Referral ID Status Reason Start Date Expiration Date Visits Re quested Visits Authorized [id number] Closed 06/26/2020 1 1 [employer] Encounter Details Date Type Department Care Team (Latest Contact Info) Description 06/26/2020 Transcribe Orders [facility] Admitting [address] [place] [address] Mendel Mo MD [address] [place] [address] Pre-op exam (Primary Dx); Right knee pain, unspecified chronicity; Osteoarthritis of right knee, unspecified osteoarthritis type Social History Tobacco Use Types Packs/Day Years Used Date Smoking Tobacco: Never Smokeless Tobacco: Never Alcohol Use Standard Drinks/Week Comments No 0 (1 standard drink = 0.6 oz pur e alcohol) PHQ-2 Answer Date Recorded PHQ-2 Score 0 05/09/2019 Comments No Sex and Gender Information Value Date Recorded Sex Assigned at Not on file Legal Sex Female 7:14 PM CDT Gender Identity Not on file Sexual Orientation Not on file COVID-19 Exposure Response Date Recorded In the last month, have you been in contact with someone who was confirmed or suspected to have Coronavirus / COVID-19? No / Unsure 06/29/2020 11:02 AM SUPERVISOR P[employer]AD[employer] documented as of this encounter Plan of Treatment Upcoming Encounters Date Type Department Care Team (Late st Contact Info) Description 11/11/2024 2:00 PM CDT Office Visit [facility] - Family [facility] [address] [place] [address] Parvin Peters, PAC [address] [place] [address] documented as of this encounter Results * XR CHEST 2 VIEWS (06/26/2020 1:10 PM SUPERVISOR [employer]ADING) Anatomical Region Laterality Modality Chest N/A Digital Radiogra phy 06/26/2020 2:11 PM [employer] Impressions 06/26/2020 2:13 PM [employer] IMPRESSION: No acute cardiopulmonary abnormality. Narrative 06/26/2020 2:13 PM [employer]ING EXAM DESCRIPTION: XR CHEST 2 VIEWS REASON FOR STUDY: Encounter for other preprocedural examination TECHNIQUE: Frontal and lateral radiographic views of the chest acquired. COMPARISON: None available. FINDINGS: LUNGS/PLEURA: No focal consolidation or pneumothorax. No pleural effusion. HEART/MEDIASTINUM: Heart size is normal. Normal mediastinal and hilar contours. HARDWARE/LINES/TUBES: None. BONES: No acute findings. OTHER: No other significant finding. THIS IS AN ELECTRONICALLY VERIFIED FINAL REPORT 06/26/2020 2:11 PM - Electronically signed by Sanjeev Osei : Report ID: [id number] Reading Location: [id number] Procedure Note Sanjeev Osei MD - 06/26/2020 EXAM DESCRIPTION: XR CHEST 2 VIEWS REASON FOR STUDY: Encounter for other preprocedural examination TECHNIQUE: Frontal and lateral radiographic views of the chest acquired. COMPARISON: None available. FINDINGS: LUNGS/PLEURA: No focal consolidation or pneumothorax. No pleural effusion. HEART/MEDIASTINUM: Heart size is normal. Normal mediastinal and hilar contours. HARDWARE/LINES/TUBES: None. BONES: No acute findings. OTHER: No other significant finding. THIS IS AN ELECTRONICALLY VERIFIED FINAL REPORT 06/26/2020 2:11 PM - Electronically signed by Sanjeev Osei : Report ID: [id number] Reading Location: [id number] IMPRESSION: No acute cardiopulmonary abnormality. Mendel Mo MD IMG DIAGNOSTIC ORDERABLES Final Result * EKG 12 LEAD (06/26/2020 12:50 PM [employer]) Ventricular Rate BPM EXTERNAL EKG Atrial Rate BPM EXTERNAL EKG P-R Interval 114 ms EXTERNAL EKG QRS Duration 72 ms EXTERNAL EKG Q-T Duration 426 ms EXTERNAL EKG QTC CALCULATION 437 ms EXTERNAL EKG P [place] 21 degrees EXTERNAL EKG R [place] 18 degrees EXTERNAL EKG T [place] 37 degrees EXTERNAL EKG 06/26/2020 12:5 0 PM [employer] Impressions EXTERNAL EKG - 06/27/2020 8:45 AM [employer] Sinus rhythm Comparison Summary: No serial comparison made Summary: Normal ECG Confirmed by Esther Ramirez [id number] on 06/27/2020 8:45:05 AM Narrative Procedure Note Kaylah Santana MD - 06/27/2020 IMPRESSION: Sinus rhythm Comparison Summary: No serial comparison made Summary: Normal ECG Confirmed by Esther Ramirez [id number] on 06/27/2020 8:45:05 AM us Mendel Mo MD IMG ECG ORDERABLES Final Result EXTERNAL EKG * CMP (COMPREHENSIVE METABOLIC PANEL) (06/26/2020 12:31 PM [employer]) SODIUM 139 136 - 144 mmol/L 06/26/2020 1:51 PM [facility] POTASSIUM 4.3 3.5 - 5.1 mmol/L 06/26/2020 1:51 PM [facility] CHLORIDE 102 100 - 110 mmol/L 06/26/2020 1:51 PM [facility] CO2, VENOUS 28 22 - 32 mmol/L 06/26/2020 1:51 PM [facility] ANION GAP 13.3 8.0 - 20.0 mmol/L 06/26/2020 1:51 PM [facility] GLUCOSE 91 70 - 99 mg/dL 06/26/2020 1:51 PM [facility] BUN 13 6 - 20 mg/dL 06/26/2020 1:51 PM [facility] CREATININE, BLOOD 0.69 0.60 - 1.10 mg/dL 06/26/2020 1:51 PM [facility] BUN/CREATININE RATIO 19 12 - 20 ratio 06/26/2020 1:51 PM [facility] TOTAL PROTEIN 6.6 6.0 - 8.3 g/dL 06/26/2020 1:51 PM [facility] ALBUMIN 4.2 3.5 - 5.2 g/dL 06/26/2020 1:51 PM [facility] Comment: The colormetric methods used for the determination of Albumin may lead to falsely elevated test results in patients suffering from renal failure or insufficiency due to interference with other proteins. A/G RATIO 1.8 1.0 - 2.0 06/26/2020 1:51 PM [employer] [facility] CALCIUM 9.0 8.9 - 10.3 mg/dL 06/26/2020 1:51 PM [employer]ING [facility] T BILI 0.4 <=1.2 mg/dL 06/26/2020 1:51 PM [employer]PER[employer]ING [facility] SGOT (AST) 14 <=32 U/L 06/26/2020 1:51 PM [employer]ADING [facility] SGPT (ALT) 14 <=33 U/L 06/26/2020 1:51 PM [employer]ING [facility] ALKALINE PHOSPHATASE 55 35 - 105 U/L 06/26/2020 1:51 PM [employer]ING [facility] GFR, EST. NONAFRICAN >60 >=60 06/26/2020 1:51 PM SUPER[employer]ADING [facility] GFR, EST. >60 >=60 020 1:51 PM SUPERVISOR PYROTECH[employer] LOADING [facility] Comment: Creatinine Clearance is the preferred criteria for selecting drug dose adjustments in renally impaired patients. The GFR is provided as additional pertinent clinical information. GFR is reported in mL/min/1.73 sq m. Blood Venipuncture / Unknown 06/26/2020 12:31 PM [employer] 06/26/2020 12:47 PM [employer]PER[employer]ING Mendel Mo MD CHEMISTRY ORDERABLES Final Resul t [facility] [address] [place] [address] documented in this encounter Visit Diagnoses Diagnosis Pre-op exam- Primary Preoperative examination, unspecified Right knee pain, unspecified chronicity Osteoarthritis of right knee, unspecified osteoarthritis type Pre-op exam Preoperative examination, unspecified Right knee pain, unspecified chronicity Osteoarthritis of right knee, unspecified osteoarthritis type Pre-op exam Preoperative examination, unspecified Right knee pain, unspecified chronicity Osteoarthritis of right knee, unspecified osteoarthritis type documented in this encounter Additional Health Concerns Assessment Noted Time PHQ-9 Depression Total Score: 0 06/23/20 18 1:00 PM CDT documented as of this encounter Care Teams Size Mixer Relationship Specialty Start Date End Date Sagar Redmond MD [address] [place] [address] PCP - General Internal Medicine 10/22/18 William Toussaint MD [address] [address] General Surgery 09/26/16 06/26/20 documented as of this encounter
== END 2024-11-08 13:41 | disposition home or self-care (01) ==
PROVIDERS: Emergency Provider Nurse Practitioner Family
DX: M25.511 Pain in right shoulder (principal)
CPT/HCPCS: 99213; G0463